=== PATIENT | female | born 1995 ===

== ENCOUNTER 2018-06-22 13:28 | Emergency (ER) | payer SELFPAY ==
[2018-06-22 13:49] VITALS: BP 132/86; RESP 16; TEMP 98; O2SAT 100
--- NOTE | 2018-06-22 14:08 | ED PDOC ---
HPI: Skin/Bite Injury Time Seen by Provider: 06/22/18 14:00 Chief Complaint (Nursing): Abnormal Skin Integrity Chief Complaint (Provider): Rash History Per: Patient History/Exam Limitations: no limitations Onset/Duration Of Symptoms: Intermittent Episodes (x3 weeks) Current Symptoms Are (Timing): Intermittent Episodes Additional Complaint(s): 22 year old female presents to the ED for evaluation of an intermittent rash for the past three weeks. Patient reports that initially she noticed it on her foot after walking outside, and thought it was an insect bite, but its recurrence made her think otherwise. She is currently asymptomatic, but notes that yesterday the itching was so bad that it kept her from sleeping. Denies other symptoms. PMD: none provided Past Medical History Reviewed: Historical Data, Nursing Documentation, Vital Signs Vital Signs: Last Vital Signs Temp 98 F 06/22/18 13:46 Pulse 100 H 06/22/18 13:46 Resp 16 06/22/18 13:46 BP 132/86 06/22/18 13:46 Pulse Ox 100 06/22/18 13:46 - Medical History PMH: No Chronic Diseases - Surgical History Surgical History: No Surg Hx - Family History Family History: States: Unknown Family Hx - Social History Current smoker - smoking cessation education provided: No Alcohol: None Drugs: Denies - Home Medications Home Medications: Ambulatory Orders Medication Instructions Recorded Cetirizine HCl [Zyrtec] 10 mg PO DAILY #15 capsule 06/22/18 DiphenhydrAMINE [Benadryl] 1 - 2 tab PO Q6 PRN #24 cap 06/22/18 RX: Prednisone [Deltasone] 2 tab PO DAILY #10 tablet 06/22/18 - Allergies Allergies/Adverse Reactions: Allergies Allergy/AdvReac Type Severity Reaction Status Date / Time No Known Allergies Allergy Verified 06/22/18 13:42 Review of Systems ROS Statement: Except As Marked, All Systems Reviewed And Found Negative Skin: Positive for: Rash (intermittent) Physical Exam - Reviewed Nursing Documentation Reviewed: Yes Vital Signs Reviewed: Yes - Physical Exam Appears: Positive for: No Acute Distress Head Exam: Positive for: ATRAUMATIC Skin: Positive for: Normal Color, Warm, Dry. Negative for: Rash (no signs of rash ) Eye Exam: Positive for: Normal appearance ENT: Positive for: Normal ENT Inspection. Negative for: Pharyngeal Erythema, Tonsillar Swelling Neck: Positive for: Normal, Painless ROM, Supple Cardiovascular/Chest: Positive for: Regular Rate, Rhythm Respiratory: Positive for: Normal Breath Sounds. Negative for: Respiratory Distress Neurologic/Psych: Positive for: Alert, Oriented (x3). Negative for: Motor/Sensory Deficits - ECG O2 Sat by Pulse Oximetry: 100 (RA) Pulse Ox Interpretation: Normal Medical Decision Making Medical Decision Making: Time: 1405 Initial Impression: possible food allergy in setting of intermittent rash Initial Plan: --Discussed with patient the possibility of a food allergy and advised to follow up with an base manager for further evaluation. Stable for discharge and return parameters explained. Scribe Attestation: Documented by Klarissa Brown acting as a scribe for Sarath Gonzalez PA-C. Provider Scribe Attestation: All medical record entries made by the Scribe were at my direction and personally dictated by me. I have reviewed the chart and agree that the record accurately reflects my personal performance of the history, physical exam, medical decision making, and the department course for this patient. I have also personally directed, reviewed, and agree with the discharge instructions and disposition. Disposition - Clinical Impression Clinical Impression: Urticaria - Patient ED Disposition Is Patient to be Admitted: No - Disposition Referrals: [facility] [Outside] Disposition: Routine/Home Disposition Time: 14:05 Condition: FAIR Additional Instructions: ALTHEA ANAHI [facility] DE ALLERGIES. Prescriptions: Cetirizine HCl [Zyrtec] 10 mg PO DAILY #15 capsule DiphenhydrAMINE [Benadryl] 1 - 2 tab PO Q6 PRN #24 cap PRN Reason: Itching / Pruritus RX: Prednisone [Deltasone] 2 tab PO DAILY #10 tablet Instructions: Misael (DC) Forms: [employer] (Croatian) Print Language: ARMENIAN
[2018-06-22 14:27] VITALS: PULSE 90
== END 2018-06-22 14:26 | disposition home or self-care (01) ==
LOC: H.ER 13:28
DX: L50.9 Urticaria, unspecified (principal)